=== PATIENT | male | born 1970 | race Caucasian/White ===

== ENCOUNTER 2023-08-02 09:03 | Outpatient (RCR) | payer BC, SELFPAY | END 2023-08-02 23:59 | disposition home or self-care (01) | LOC: RPT 09:03 | PROVIDERS: ATTENDING PHYSICIAN Orthopaedic Surgery; FAMILY PHYSICIAN Family Medicine | DX: M54.2 Cervicalgia (principal); Z73.6 Limitation of activities due to disability | CPT/HCPCS: 97010; 97110; 97161 ==

== ENCOUNTER 2023-08-09 09:04 | Outpatient (RCR) | payer BC, SELFPAY | END 2023-08-09 23:59 | disposition home or self-care (01) | LOC: RPT 09:04 | PROVIDERS: ATTENDING PHYSICIAN Orthopaedic Surgery; FAMILY PHYSICIAN Family Medicine | DX: M54.2 Cervicalgia (principal); Z73.6 Limitation of activities due to disability | CPT/HCPCS: 97010; 97110 ==

== ENCOUNTER → 2024-05-15 17:03 | Outpatient (REF) | payer BC, SELFPAY | LOC: RAD 17:03 | PROVIDERS: ATTENDING PHYSICIAN Family Medicine | DX: R11.0 Nausea (principal); R19.7 Diarrhea, unspecified; R10.84 Generalized abdominal pain | CPT/HCPCS: 74177; Q9967 ==

== ENCOUNTER → 2024-10-28 14:06 | Outpatient (REF) | payer BC, SELFPAY | LOC: DHSLP 14:06 | PROVIDERS: ATTENDING PHYSICIAN Internal Medicine; FAMILY PHYSICIAN Family Medicine | DX: G47.33 Obstructive sleep apnea (adult) (pediatric) (principal) | CPT/HCPCS: 95800 ==